=== PATIENT | male | born 1955 | race Caucasian/White ===

== ENCOUNTER 2021-02-13 06:14 | Day surgery (SDC) | payer OTHER ==
[~2021-02-13] VITALS: Ht 180.3 cm; Wt 101.2 kg
[~2021-02-13 06:14] MED LIST: PROAIR RESPICL90 MCG IH
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
--- NOTE | 2021-02-13 07:43 | NUR ---
02/13/21 0743 Nivia Vale PATIENT INJECTED WITH LOCAL IN PRE OP.
== END 2021-02-13 08:26 | disposition home or self-care (01) ==
LOC: ORSCSDS 06:14
PROVIDERS: Orthopaedic Surgery
PROC: 0LN70ZZ Release Right Hand Tendon, Open Approach (ICD-10-PCS; principal; 2021-02-13 07:30)
DX: M65.311 Trigger thumb, right thumb (principal); E66.9 Obesity, unspecified; Z68.31 Body mass index [BMI] 31.0-31.9, adult; J45.909 Unspecified asthma, uncomplicated; Z79.899 Other long term (current) drug therapy
CPT/HCPCS: J7120